=== PATIENT | female | born 1975 | race Caucasian/White ===

== ENCOUNTER → 2024-12-14 | Outpatient (CLI) | payer OTHER, SELFPAY ==
--- NOTE | 2024-12-14 10:38 | COLBX_PTH ---
PATIENT: JOSSELINE MANDEL LOC: [facility] U#:[id number] AGE/SX: 49/F ROOM: RE12/14/[address]: Dr. Carolina Vizcaino MD : 1975 BED: DIS: 12/14/2024 SPEC #: [id number] RECD: 12/14/24 12:46 STATUS: ROSELYN REMakenna #: [id number] PARRISH: 12/14/24 10:[address]: Carolina Vizcaino DEPT: SURGICAL PATHOLOGY RECD BY: Alicia Samano Tissues: Sigmoid colon biopsy Procedures: Surgery Specimen Level IV HEADER OPERATION: Screening colonoscopy PRE-OP DIAGNOSIS: Screening TISSUE SUBMITTED: Sigmoid polyp MICROSCOPIC DIAGNOSIS Sigmoid polyp, biopsy: Tubular adenoma. 12/15/2024 MICROSCOPIC DESCRIPTION Slides are reviewed. GROSS DESCRIPTION Received in fixative is one container labeled with the patient's name and designated Sigmoid polyp. The specimen consists of one irregular fragment of light bull soft tissue that measures 0.4 x 0.3 x 0.3 cm. The specimen is totally submitted in one cassette. 12/14/2024 TC:1 CPT:34282
== END | disposition home or self-care (01) ==
LOC: LABSPEC 12:52
PROVIDERS: Referring Provider Surgery; Visit Provider Surgery
DX: D12.5 Benign neoplasm of sigmoid colon (principal)
CPT/HCPCS: 88305